=== PATIENT | female | born 1955 | race Caucasian/White ===

== ENCOUNTER → 2017-12-30 | Outpatient (CLI) | payer MEDICARE | LOC: PREOP 05:35 | PROVIDERS: ATTEND Internal Medicine Critical Care Medicine | DX: Z01.818 Encounter for other preprocedural examination (principal); R91.8 Other nonspecific abnormal finding of lung field; R63.4 Abnormal weight loss; F17.200 Nicotine dependence, unspecified, uncomplicated ==

== ENCOUNTER → 2018-01-04 | Outpatient (CLI) | payer MEDICARE, MEDICAID ==
[~2018-01-04] MED LIST: AMIT50TA3 PO; CARB400T8 PO; FLUT9.9S NS
--- NOTE | 2018-01-04 16:22 | Diagnostic Imaging Report ---
INDICATION: Left lung mass and weight loss. TECHNIQUE: Patient's blood serum glucose level was 91 mg/dL at time of injection. Patient was administered 13.6 mCi F-18 FDG intravenously in the left antecubital location and PET imaging was performed from the top of the skull through the mid thighs. In addition, noncontrast CT was performed for anatomic correlation and attenuation correction. COMPARISON: No prior studies are available for comparison. FINDINGS: Imaging through the brain does show a large area of photopenia on the left, correlating with a large area of encephalomalacia on the CT, likely from prior infarct. No suspicious region of hypermetabolism is identified. Imaging through the neck does show a small focus of hypermetabolism in the right posterior cervical location with SUV max of approximately 8.4. This does correlate with a small approximately 7 mm lymph node. No other hypermetabolic focus in the neck is identified. There is a small focus of hypermetabolism in the left proximal humerus laterally measuring up to 7.9 SUV max. This is in the region of the lateral humeral head. There is a large hypermetabolic mass arising from the left hilum with SUV max of approximately 18.5. This correlates to a lesion on the CT measuring approximately 5.3 x 5.1 cm. The right hilum is unremarkable. No mediastinal hypermetabolism is seen. No pulmonary parenchymal hypermetabolism is identified. Imaging through the abdomen and pelvis does show normal physiologic activity within the liver and spleen as well as the genitourinary and GI tracts. No suspicious hypermetabolism in the abdomen or pelvis is identified. IMPRESSION: 1. Large hypermetabolic mass in the left hilum, suggestive of bronchogenic carcinoma. 2. Hypermetabolic focus in the right posterior cervical space, correlating with a small lymph node. Small metastatic lymph node cannot be excluded. In addition, there is a small focus of hypermetabolism in the proximal left humerus and a small metastatic lesion cannot be excluded. MRI of the left shoulder would be useful for further evaluation. Dictated by: Dictated on workstation # [id number]
== END ==
LOC: RAD 11:34
PROVIDERS: ATTEND Internal Medicine Critical Care Medicine
DX: R91.8 Other nonspecific abnormal finding of lung field (principal); R63.4 Abnormal weight loss; F17.200 Nicotine dependence, unspecified, uncomplicated

== ENCOUNTER 2018-01-05 06:31 | Day surgery (SDC) | payer MEDICARE, MEDICAID ==
[~2018-01-05] VITALS: Ht 165.1 cm; Wt 54.4 kg
[2018-01-05] MEDS ORDERED: LIDOCAINE 4% INJ (XYLOCAINE) 5ML AMP INJ ONE (06:32)
[2018-01-05] MEDS ORDERED: LIDOCAINE JELLY 2% (XYLOCAINE) 30 ML TUBE TOP ONE (06:32)
[2018-01-05] MEDS ORDERED: LIDOCAINE PF 1% 2 ML AMP INJ ONE (06:32)
--- OUTSIDE RECORDS SUMMARY | 2018-01-05 06:36 | XMS REPORT ---
Author Author DEEPAK Ramirez [facility] Address Unknown Care Team Providers Care Hide Stretcher Hand Name Role Phone DEEPAK Ramirez Unavailable PROBLEMS Unknown Problems ALLERGIES No Known Allergies SOCIAL HISTORY Never Assessed PLAN OF CARE Activity Details Follow Up 3 Weeks Reason:Upper and lower impressions VITAL SIGNS Blood pressure systolic 145 mmHg 2016-12-14 Blood pressure diastolic 93 mmHg 2016-12-14 MEDICATIONS Medication Instructions Dosage Frequency Start Date End Date Duration Status Amitriptyline HCl Active RESULTS No Results PROCEDURES Procedure Date Ordered Result Body Site EXTRAC ERUPTED TOOTH/EXPOSED ROOT Dec 14, 2016 EXTRAC ERUPTED TOOTH/EXPOSED ROOT Dec 14, 2016 EXTRAC ERUPTED TOOTH/EXPOSED ROOT Dec 14, 2016 EXTRAC ERUPTED TOOTH/EXPOSED ROOT Dec 14, 2016 EXTRAC ERUPTED TOOTH/EXPOSED ROOT Dec 14, 2016 EXTRAC ERUPTED TOOTH/EXPOSED ROOT Dec 14, 2016 EXTRAC ERUPTED TOOTH/EXPOSED ROOT Dec 14, 2016 EXTRAC ERUPTED TOOTH/EXPOSED ROOT Dec 14, 2016 IMMUNIZATIONS No Known Immunizations MEDICAL (GENERAL) HISTORY Type Description Date Medical History stroke 1991
--- OUTSIDE RECORDS SUMMARY | 2018-01-05 06:36 | XMS REPORT ---
Author Author DEEPAK Ramirez [facility] Address Unknown Care Team Providers Care Inventory Assistant Name Role Phone DEEPAK Ramirez Unavailable PROBLEMS Unknown Problems ALLERGIES Substance Reaction Event Type Date Status N.K.D.A. Unknown Non Drug Allergy Aug, Unknown SOCIAL HISTORY No smoking Hx information available PLAN OF CARE Activity Details Follow Up prn Reason:upper te VITAL SIGNS Blood pressure systolic 137 mmHg 2016-08-25 Blood pressure diastolic 81 mmHg 2016-08-25 MEDICATIONS Medication Instructions Dosage Frequency Start Date End Date Duration Status Amitriptyline HCl Active RESULTS No Results PROCEDURES Procedure Date Ordered Related Diagnosis Body Site COMP ORAL EVALUATION - NEW/EST PT Aug 25, 2016 PANORAMIC FILM SEE ALSO CODE [id number] Aug 25, 2016 IMMUNIZATIONS No Known Immunizations
--- OUTSIDE RECORDS SUMMARY | 2018-01-05 06:36 | XMS REPORT ---
Author Author DEEPAK Ramirez Organization [facility] Address Unknown Care Team Providers Care Networking Technology Instructor Name Role Phone DEEPAK Ramirez Unavailable PROBLEMS Unknown Problems ALLERGIES Substance Reaction Event Type Date Status N.K.D.A. Unknown Non Drug Allergy Sep, Unknown SOCIAL HISTORY No smoking Hx information available PLAN OF CARE Activity Details Follow Up 1 Week Reason:upper left te VITAL SIGNS Blood pressure systolic 118 mmHg 2016-10-05 Blood pressure diastolic 99 mmHg 2016-10-05 MEDICATIONS Medication Instructions Dosage Frequency Start Date End Date Duration Status Amitriptyline HCl Active RESULTS No Results PROCEDURES Procedure Date Ordered Related Diagnosis Body Site INTRAORL-PERIAPICAL 1 FILM [id number] Oct 05, 2016 INTRAORL-PERIAPICAL EA ADD FILM Oct 05, 2016 EXTRAC ERUPTED TOOTH/EXPOSED ROOT Oct 05, 2016 EXTRAC ERUPTED TOOTH/EXPOSED ROOT Oct 05, 2016 EXTRAC ERUPTED TOOTH/EXPOSED ROOT Oct 05, 2016 EXTRAC ERUPTED TOOTH/EXPOSED ROOT Oct 05, 2016 EXTRAC ERUPTED TOOTH/EXPOSED ROOT Oct 05, 2016 IMMUNIZATIONS No Known Immunizations
--- OUTSIDE RECORDS SUMMARY | 2018-01-05 06:36 | XMS REPORT ---
Author Author DEPEAK Ramirez Organization [facility] Address Unknown Care Team Providers Care Sales And Marketing Specialist Name Role Phone DEEPAK Ramirez Unavailable PROBLEMS Unknown Problems ALLERGIES Substance Reaction Event Type Date Status N.K.D.A. Unknown Non Drug Allergy Sep, Unknown SOCIAL HISTORY No smoking Hx information available PLAN OF CARE Activity Details Follow Up prn Reason:upper denture VITAL SIGNS Blood pressure systolic 112 mmHg 2016-10-14 Blood pressure diastolic 72 mmHg 2016-10-14 MEDICATIONS Medication Instructions Dosage Frequency Start Date End Date Duration Status Amitriptyline HCl Active RESULTS No Results PROCEDURES Procedure Date Ordered Related Diagnosis Body Site EXTRAC ERUPTED TOOTH/EXPOSED ROOT Oct 14, 2016 EXTRAC ERUPTED TOOTH/EXPOSED ROOT Oct 14, 2016 EXTRAC ERUPTED TOOTH/EXPOSED ROOT Oct 14, 2016 EXTRAC ERUPTED TOOTH/EXPOSED ROOT Oct 14, 2016 EXTRAC ERUPTED TOOTH/EXPOSED ROOT Oct 14, 2016 IMMUNIZATIONS No Known Immunizations
--- OUTSIDE RECORDS SUMMARY | 2018-01-05 06:36 | XMS REPORT ---
Author Author DEEPAK Ramirez [facility] Address Unknown Care Team Providers Care Seam Rubbing Machine Operator Name Role Phone DEEPAK Ramirez Unavailable PROBLEMS Unknown Problems ALLERGIES No Known Allergies SOCIAL HISTORY Never Assessed PLAN OF CARE VITAL SIGNS MEDICATIONS Medication Instructions Dosage Frequency Start Date End Date Duration Status Amitriptyline HCl Active RESULTS No Results PROCEDURES Procedure Date Ordered Result Body Site EXTRAC ERUPTED TOOTH/EXPOSED ROOT Nov 23, 2016 EXTRAC ERUPTED TOOTH/EXPOSED ROOT Nov 23, 2016 IMMUNIZATIONS No Known Immunizations MEDICAL (GENERAL) HISTORY Type Description Date Medical History stroke 1991
[2018-01-05] MEDS ORDERED: NS IV 500 ML 500 ML IV PRN (06:56)
[2018-01-05] MEDS ORDERED: CARB400T8 PO (07:07)
[2018-01-05] MEDS ORDERED: AMIT50TA3 PO (07:08)
[2018-01-05] MEDS ORDERED: FLUT9.9S NS (07:08)
[2018-01-05] MEDS ORDERED: NS IV 500 ML 500 ML ONE (07:09)
[2018-01-05 07:16] VITALS: BP 130/63
--- NOTE | 2018-01-05 07:24 | Progress Note-Pre Operative ---
Pre-Operative Progress Note H&P Reviewed The H&P was reviewed, patient examined and no changes noted. Time Seen by Provider: 07:23 Date H&P Reviewed: Jan 05, 2018 Time H&P Reviewed: 07:23 Pre-Operative Diagnosis: lung mass FRANCISCO JAVIER WILLETT DO Jan 05, 2018 07:24
--- NOTE | 2018-01-05 07:24 | Pre-Op Note & Conscious Sedat ---
Pre-Operative Progress Note H&P Reviewed The H&P was reviewed, patient examined and no changes noted. Date H&P Reviewed: Jan 05, 2018 Time H&P Reviewed: 07:24 Pre-Op Diagnosis: left pleural effusion Conscious Sedation Pre-Proced Time Reviewed: 07:23 ASA Class: 3 Airway Mallampati Classification: (eyak appropriate class) I. II. III, IV Lungs Heart ASA score ASA 1: a normal healthy patient ASA 2: a patient with a mild systemic disease (mid diabetes, controlled hypertension, obesity ASA 3: a patient with a severe systemic disease that limits activity (angina , COPD, prior Myocardial infarction) ASA 4: a patient with an incapacitating disease that is a constant threat to life (CHF, renal failure) ASA 5: a moribund patient not expected to survive 24 hrs. (ruptured aneurysm) ASA 6: a declared brain patient whose organs are being harvested. For emergent operations, add the letter E after the classification Grade 3 Sedation Plan: Analgesia, Amnesia, Plan communicated to team members, Discussed options with patient/fam, Discussed risks with patient/fam Note The patient is an appropriate candidate to undergo the planned procedure, sedation, and anesthesia. The patient immediately re-assessed prior to indication. FRANCISCO JAVIER WILLETT DO Jan 05, 2018 07:24
[2018-01-05] MEDS ORDERED: fentaNYL INJECTION 100 MCG/2 ML AMP ONE ×2 (07:28→07:53)
[2018-01-05] MEDS ORDERED: MIDAZOLAM 2 MG/2 ML (VERSED) VIAL ONE ×4 (07:28)
[2018-01-05] MEDS: fentaNYL INJECTION 100 MCG/2 ML AMP IVP PRN ×7 (07:39→08:07)
[2018-01-05] MEDS: MIDAZOLAM 2 MG/2 ML (VERSED) VIAL IVP PRN ×7 (07:40→08:08)
--- NOTE | 2018-01-05 08:40 | Diagnostic Imaging Report ---
INDICATION: Post bronchoscopy. COMPARISON: None. FINDINGS: Portable supine view of the chest is obtained. No pneumothorax is seen. Heart size and pulmonary vasculature appear unremarkable. There is a 7.8 cm masslike opacity over the left hilum concerning for adenopathy or central mass. There may be some minimal to mild pneumonitis seen within the left upper lobe. The right lung is clear. IMPRESSION: No evidence of pneumothorax post bronchoscopy. There is a mass-like opacity over the left hilum concerning for central mass or adenopathy. Mild pneumonitis left upper lobe. Dictated by: Dictated on workstation # [id number]
[2018-01-05 08:45] VITALS: BP 117/55
[2018-01-05 09:15] VITALS: BP 123/68
[2018-01-05 09:55] VITALS: BP 123/68
--- NOTE | 2018-01-05 10:39 | Diagnostic Imaging Report ---
INDICATION: Fluoroscopy during bronchoscopy. FINDINGS: Fluoroscopy was performed during bronchoscopy by Dr. Camacho. A total of 78 seconds of fluoroscopic time was utilized. Three images were obtained. IMPRESSION: Fluoroscopy during bronchoscopy. Dictated by: Dictated on workstation # [id number]
== END 2018-01-05 09:55 | disposition home or self-care (01) ==
LOC: ENDO 06:31
PROVIDERS: ATTEND Internal Medicine Critical Care Medicine
DX: R91.8 Other nonspecific abnormal finding of lung field (principal); F17.200 Nicotine dependence, unspecified, uncomplicated; R63.4 Abnormal weight loss; R22.0 Localized swelling, mass and lump, head
CPT/HCPCS: 71045; 87070; 87101; 87116; 87205

== ENCOUNTER 2018-01-13 11:12 | Day surgery (SDC) | payer MEDICARE, MEDICAID ==
[~2018-01-13] VITALS: Ht 165.1 cm; Wt 54.4 kg
[~2018-01-13 11:12] MED LIST changes: -ACHD5005 PO; -GADOBUTROL 7.5 MMOL/7.5 ML (GADAVIST) VIAL IV ONE
[2018-01-13] MEDS ORDERED: LACTATED RINGERS 1,000 ML IV PRN (11:24)
[2018-01-13] MEDS ORDERED: LIDOCAINE 1% INJ 20 ML (XYLOCAINE) VIAL ONE (11:51)
[2018-01-13] MEDS ORDERED: HEParin (CENTRAL IV FLUSH) 500 UNIT/5 ML SYR ONE (11:51)
[2018-01-13] MEDS ORDERED: BUPIVACAINE 0.5% 30 ML (SENSORCAINE) VIAL ONE (11:51)
[2018-01-13] MEDS ORDERED: 0.9% SODIUM CHLORIDE PF INJ 20 ML VIAL ONE (11:52)
[2018-01-13 12:00] VITALS: BP 133/70
[2018-01-13] MEDS ORDERED: LEVETIRACETAM INJECTION 1,000 MG in NS (IVPB) 100 ML IV ONE (12:00)
[2018-01-13] MEDS ORDERED: ceFAZolin 1 GM/NS 100 ML IVPB IV ONE ×2 (12:00)
[2018-01-13] MEDS ORDERED: PROPOFOL INJECTION 50 ML IV ONE (12:17)
[2018-01-13] MEDS ORDERED: MIDAZOLAM 2 MG/2 ML (VERSED) VIAL ONE (12:18)
[2018-01-13 12:33] LABS: BASOPHILS % (AUTO) 1 % (0-10); EOSINOPHILS # (AUTO) 0.1 10^3/uL (0.0-0.3); EOSINOPHILS % (AUTO) 2 % (0-10); HEMATOCRIT 36 % (35-52); HEMOGLOBIN 12.2 G/DL (11.5-16.0); LYMPHOCYTES # (AUTO) 1.6 X 10^3 (1.0-4.0); LYMPHOCYTES % (AUTO) 38 % (12-44); MEAN CORPUSCULAR HEMOGLOBIN 27 PG (25-34); MEAN CORPUSCULAR HGB CONC 34 G/DL (32-36); MEAN CORPUSCULAR VOLUME 81 FL (80-99); MEAN PLATELET VOLUME 10.8 FL (7.4-10.4); MONOCYTES # (AUTO) 0.4 X 10^3 (0.0-1.0); MONOCYTES % (AUTO) 10 % (0-12); NEUTROPHILS # (AUTO) 2.1 X 10^3 (1.8-7.8); NEUTROPHILS % (AUTO) 49 % (42-75); PLATELET COUNT 205 10^3/uL (130-400); RED BLOOD COUNT 4.45 10^6/uL (4.35-5.85); RED CELL DISTRIBUTION WIDTH 15.4 % (10.0-14.5); WHITE BLOOD COUNT 4.3 10^3/uL (4.3-11.0)
--- NOTE | 2018-01-13 13:29 | Progress Note-Post Operative ---
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
--- NOTE | 2018-01-13 13:32 | Discharge Inst-Simple/Standard ---
Discharge Inst-Standard Discharge Medications New, Converted or Re-Newed RX: RX on Chart Patient Instructions/Follow Up Plan of Care/Instructions/FU: 2 weeks Seema Activity as Tolerated: No Discharge Diet: Regular Diet Other Inst to Patient Follow up Appt: Make appointment for 2 week. Instructions: No lifting greater than 10 pounds. No strenuous activity. May shower in 24 hours, no tub bath or soaking. Use incentive spirometer at home as directed. No Smoking Skin/Wound Care: May remove bandages 48 hours. You have special glue it will fall off on its own. Symptoms to Report: Appetite Changes, Extremity Discoloration, Numbness/Tingling, Swelling Increased , Bleeding Excessive, Eyesight Changes, Pain Increased, Urine Color Change, Constipation(Persistent), Fever over 101 degree F, Pain/Pressure in chest, Urinating Difficulty, Cough Up/Vomit Blood, Heart Beat Irreg/Pounding, Pain/ Pressure in jaw, Vaginal Bleeding Increase, Cramps in feet or legs, Lightheadedness, Pain/Pressure in shoulder, Diarrhea(Persistent), Memory Changes Suddenly, Questions/Concerns, Weight gain consecutive days, Dizziness/ Fainting, Nausea/Vomiting, Shortness of Breath, Weight gain over 2 pounds If questions or concerns contact your physician Or seek help at emergency department. RONY MARIA DO Jan 13, 2018 13:32
[2018-01-13] MEDS ORDERED: ONDANSETRON 4 MG/2 ML (SDV) Z0FRAN IVP PRN (13:45)
[2018-01-13] MEDS ORDERED: morphine INJ 10 MG/ML 1ML (SYR OR VIAL) IVP PRN (13:45)
[2018-01-13] MEDS ORDERED: ACHD5005 PO ×2 (13:52)
--- NOTE | 2018-01-13 13:52 | Diagnostic Imaging Report ---
INDICATION: PowerPort insertion. TECHNIQUE/FINDINGS: Fluoroscopy was provided in the OR during a PowerPort insertion by Dr. Stephenson. 46 seconds of fluoroscopy time was utilized. A single image over the chest demonstrates a right chest wall port. IMPRESSION: Fluoroscopy for chest wall port placement. Dictated by: Dictated on workstation # [id number]
--- NOTE | 2018-01-13 14:07 | Diagnostic Imaging Report ---
INDICATION: Post port placement. COMPARISON: 01/05/2018. FINDINGS: Upright portable view of the chest is obtained. There is now a right Port-A-Cath present, the tip of which appears to be in the proximal superior vena cava. There is no evidence of pneumothorax. Heart size is normal. There is no central venous congestion. Mass-like opacity obscuring the left hilum is unchanged. The lungs are otherwise clear. IMPRESSION: 1. New right Port-A-Cath tip appears to be in the proximal superior vena cava. No evidence of pneumothorax. 2. Mass-like process over the left hilum is similar to the recent prior study. Dictated by: Dictated on workstation # [id number]
[2018-01-13 14:08] VITALS: BP 145/82
[2018-01-13 14:40] VITALS: BP 145/81
[2018-01-13 15:30] VITALS: BP 145/81
--- NOTE | 2018-01-13 19:12 | OPERATIVE REPORT ---
DATE OF SERVICE: 01/13/2018 PREOPERATIVE DIAGNOSIS: Small cell lung cancer, left. POSTOPERATIVE DIAGNOSIS: Small cell lung cancer, left. PROCEDURE: Right internal jugular, ultrasound-guided port placement. SURGEON: Rony Stephenson DO. ANESTHESIA: MAC. ESTIMATED BLOOD LOSS: Minimal. COMPLICATIONS: None. INDICATIONS: The patient is a 62-year-old female with recent diagnosis of small cell lung cancer. She was explained risks and benefits of procedure, and wished to proceed with procedure. Consent was signed in the chart. DESCRIPTION OF PROCEDURE: The patient was taken to the operating suite, she was prepped and draped in sterile fashion. A surgical pause was performed. A local anesthetic was infiltrated into the right internal jugular vein area which was located by ultrasound. The right internal jugular vein was then accessed with micro access needle. Dark nonpulsatile blood was withdrawn. The micro access wire was inserted through the needle and the needle was removed. Fluoroscopy assured proper placement. The stab incision was made at the insertion point. The dilator sheath was advanced over the wire. The wire was removed. The normal guidewire was inserted and fluoroscopy assured proper placement. The sheath was removed as well. The wire was then secured. A pocket was created over the right chest after local anesthetic was infiltrated into the area. A dilator sheath was advanced over the guidewire under fluoroscopy and the wire and dilator were removed. The Groshong catheter was inserted through the sheath and the sheath was then removed. The catheter was then tunneled from the insertion site to the pocket created on the right chest. Catheter was cut to length, attached to the port in usual fashion and placed within the pocket. The port was then accessed without difficulty and galina blood and flushed without difficulty first with saline and then with heparin. The subcutaneous tissues were then reapproximated using 3-0 Vicryl. The skin was then closed with Skin Affix after it was washed and dried, but the neck and the chest incision and sterile bandage applied. The patient tolerated procedure well without any complications. She was taken to the recovery room in stable condition. Chest x-ray was pending. Job ID: [id number] DocumentID: [id number] Dictated Date: 01/13/2018 13:36:58 Paste Mixer Date: 01/13/2018 17:06:59 Dictated By: RONY STEPHENSON DO
== END 2018-01-13 15:30 | disposition home or self-care (01) ==
LOC: SDC 11:12
PROVIDERS: ATTEND Surgery
DX: C34.92 Malignant neoplasm of unspecified part of left bronchus or lung (principal); F17.210 Nicotine dependence, cigarettes, uncomplicated; I69.351 Hemiplegia and hemiparesis following cerebral infarction affecting right dominant side; Z79.899 Other long term (current) drug therapy
CPT/HCPCS: 36415; 71045; 85025; 87081

== ENCOUNTER → 2018-01-13 | Outpatient (CLI) | payer MEDICARE, MEDICAID ==
[~2018-01-13] MED LIST changes: +ACHD5005 PO; +GADOBUTROL 7.5 MMOL/7.5 ML (GADAVIST) VIAL IV ONE
[2018-01-13 16:25] LABS: BUN/CREATININE RATIO 10; GFR ESTIMATED > 60
--- NOTE | 2018-01-13 17:29 | Diagnostic Imaging Report ---
PROCEDURE: MR imaging of the brain with and without contrast. TECHNIQUE: Multiplanar, multisequence MR imaging of the brain was performed with and without contrast. INDICATION: History of stroke and brain tumor resection. Syncope. Weakness. COMPARISON: Outside CT head without contrast 12/25/2017. FINDINGS: Examination limited by motion artifact. Left parietal craniotomy and resection of most of the left temporal lobe and left parietal lobe. Mild gliosis about this region in the posterior left frontal and parietal lobes. Additional mild scattered T2 hyperintensities in the supratentorial white matter are nonspecific. Small chronic infarct in the left cerebellar hemisphere. No other abnormal intracranial signal, enhancement, restricted water diffusion, or hemosiderin deposition. Normal morphology including the major midline structures, posterior fossa, and cerebellopontine angles. No hydrocephalus. Normal intracranial flow voids. The paranasal sinuses and mastoids are clear. Left parietal craniotomy. No suspicious bone marrow signal or enhancement. IMPRESSION: 1. Left parietal craniotomy with underlying resection of most of the left temporal and left parietal lobes. Expected adjacent gliosis. 2. Mild nonspecific T2 hyperintensities in the supratentorial white matter, presumed leukoaraiosis. 3. No acute intracranial MRI findings. Findings discussed with Dr. Richter at 5:22 p.m. on 01/13/2018. Dictated by: Dictated on workstation # [id number]
== END ==
LOC: RAD 15:43
PROVIDERS: ATTEND Internal Medicine Critical Care Medicine
DX: R55 Syncope and collapse (principal); R53.1 Weakness; R91.8 Other nonspecific abnormal finding of lung field; R56.9 Unspecified convulsions; Z86.73 Personal history of transient ischemic attack (TIA), and cerebral infarction without residual deficits; Z98.890 Other specified postprocedural states
CPT/HCPCS: 36415; 70553; 82565; 84520

== ENCOUNTER → 2018-01-18 | Outpatient (CLI) | payer MEDICARE, MEDICAID ==
[~2018-01-18] MED LIST changes: +ACHD5005 PO; +CATHETER FLUSH 10 ML SYR IV PRN; +GADOBUTROL 7.5 MMOL/7.5 ML (GADAVIST) VIAL IV ONE; +IOHEXOL 350 MG/ML 100 ML (OMNIPAQUE 350) VIAL IV ONE; +NS 100 ML (IVPB) BAG IV ONE
--- NOTE | 2018-01-18 17:15 | Diagnostic Imaging Report ---
PROCEDURE: CT neck soft tissue with contrast. TECHNIQUE: Multiple contiguous axial images were obtained through the neck after the administration of contrast. INDICATION: Small cell lung cancer. Abnormal FDG PET/CT. COMPARISON: Nuclear medicine FDG PET/CT 01/04/2018. FINDINGS: There is a 0.7 x 0.8 x 1.5 cm necrotic appearing right level II lymph node (axial series image 42). This corresponds to the abnormal FDG uptake on the comparison examination. There is no other cervical lymphadenopathy or suspicious appearing lymph nodes. Nonspecific hypoenhancing nodule in the left thyroid lobe measuring up to 0.7 cm. Partially visualized mass in the left hilum. Coarse atherosclerotic calcifications including the carotid bifurcations. The major salivary glands are unremarkable. The pharyngeal and laryngeal soft tissues are symmetric bilaterally with no focal mass or enhancement. Normal epiglottis and tongue base. Moderate to advanced spondylotic changes are greatest at C5-C7. No high-grade spinal canal narrowing is evident on this nondedicated exam. IMPRESSION: Necrotic appearing right level II lymph node measuring up to 1.5 cm corresponds to the finding on the prior FDG PET/CT. There is no other lymphadenopathy, mass or fluid collection in the neck. Dictated by: Dictated on workstation # [id number]
--- NOTE | 2018-01-18 18:11 | Diagnostic Imaging Report ---
PROCEDURE: MRI upper extremity any joint with and without contrast left. INDICATION: Metastatic neoplasm with abnormal appearance of the left humerus on recent PET scan. Multiplanar pre and postcontrast MR imaging of the left shoulder is performed. FINDINGS: There is mild increased T2 signal within the distal supraspinatus tendon suggesting probable partial tear with what appears to be subchondral cyst in the adjacent humeral head. There is, however, an additional T2 hyperintense focus measuring approximately 1.2 cm in diameter in the posterior aspect of the left humeral head which demonstrates contrast enhancement and would be compatible with metastatic lesion. There is no significant joint effusion. There is mild acromioclavicular degenerative change. No other significant change is noted. IMPRESSION: 1. Findings are compatible with an approximately 1.2 cm osseous metastasis involving the posterior margin of the left humeral head. 2. Otherwise, there is probable partial tear of the distal supraspinatus tendon with underlying degenerative change in the adjacent humeral head. Dictated by: Dictated on workstation # [id number]
== END ==
LOC: RAD 16:09
PROVIDERS: ATTEND Internal Medicine Hematology & Oncology
DX: C34.90 Malignant neoplasm of unspecified part of unspecified bronchus or lung (principal); C79.51 Secondary malignant neoplasm of bone
CPT/HCPCS: 70491; 73223

== ENCOUNTER 2018-04-14 10:56 | Outpatient (RCR) | payer MEDICARE, MEDICAID ==
[2018-01-18 12:35] LABS: BASOPHILS % (AUTO) 1 % (0-10); EOSINOPHILS # (AUTO) 0.1 10^3/uL (0.0-0.3); EOSINOPHILS % (AUTO) 3 % (0-10); HEMATOCRIT 38 % (35-52); HEMOGLOBIN 12.7 G/DL (11.5-16.0); LYMPHOCYTES # (AUTO) 1.5 X 10^3 (1.0-4.0); LYMPHOCYTES % (AUTO) 34 % (12-44); MEAN CORPUSCULAR HEMOGLOBIN 27 PG (25-34); MEAN CORPUSCULAR HGB CONC 34 G/DL (32-36); MEAN CORPUSCULAR VOLUME 81 FL (80-99); MEAN PLATELET VOLUME 10.8 FL (7.4-10.4); MONOCYTES # (AUTO) 0.5 X 10^3 (0.0-1.0); MONOCYTES % (AUTO) 12 % (0-12); NEUTROPHILS # (AUTO) 2.1 X 10^3 (1.8-7.8); NEUTROPHILS % (AUTO) 50 % (42-75); PLATELET COUNT 204 10^3/uL (130-400); RED BLOOD COUNT 4.67 10^6/uL (4.35-5.85); RED CELL DISTRIBUTION WIDTH 15.4 % (10.0-14.5); WHITE BLOOD COUNT 4.3 10^3/uL (4.3-11.0)
[2018-01-18 12:50] LABS: ALANINE AMINOTRANSFERASE 15 U/L (0-55); ALKALINE PHOSPHATASE 95 U/L (40-136); BILIRUBIN,TOTAL 0.2 MG/DL (0.1-1.0); BUN/CREATININE RATIO 13; CALCIUM 9.6 MG/DL (8.5-10.1); CARBON DIOXIDE 25 MMOL/L (21-32); CHLORIDE 108 MMOL/L (98-107); CREATININE SERUM 0.64 MG/DL (0.60-1.30); GFR ESTIMATED > 60; GLUCOSE 93 MG/DL (70-105); POTASSIUM 3.9 MMOL/L (3.6-5.0); SODIUM 141 MMOL/L (135-145); TOTAL PROTEIN 7.2 GM/DL (6.4-8.2)
[2018-02-21 09:36] LABS: BASOPHILS % (AUTO) 1 % (0-10); EOSINOPHILS # (AUTO) 0.1 10^3/uL (0.0-0.3); EOSINOPHILS % (AUTO) 2 % (0-10); HEMATOCRIT 34 % (35-52); HEMOGLOBIN 11.8 G/DL (11.5-16.0); LYMPHOCYTES # (AUTO) 1.5 X 10^3 (1.0-4.0); LYMPHOCYTES % (AUTO) 36 % (12-44); MEAN CORPUSCULAR HEMOGLOBIN 28 PG (25-34); MEAN CORPUSCULAR HGB CONC 34 G/DL (32-36); MEAN CORPUSCULAR VOLUME 83 FL (80-99); MEAN PLATELET VOLUME 9.8 FL (7.4-10.4); MONOCYTES # (AUTO) 0.5 X 10^3 (0.0-1.0); MONOCYTES % (AUTO) 13 % (0-12); NEUTROPHILS % (AUTO) 48 % (42-75); PLATELET COUNT 231 10^3/uL (130-400); RED BLOOD COUNT 4.17 10^6/uL (4.35-5.85); RED CELL DISTRIBUTION WIDTH 15.4 % (10.0-14.5); WHITE BLOOD COUNT 4.1 10^3/uL (4.3-11.0)
[2018-02-21 09:56] LABS: ALANINE AMINOTRANSFERASE 13 U/L (0-55); ALBUMIN 3.9 GM/DL (3.2-4.5); ALKALINE PHOSPHATASE 88 U/L (40-136); BILIRUBIN,TOTAL 0.4 MG/DL (0.1-1.0); BUN/CREATININE RATIO 8; CALCIUM 9.3 MG/DL (8.5-10.1); CARBON DIOXIDE 26 MMOL/L (21-32); CHLORIDE 109 MMOL/L (98-107); CREATININE SERUM 0.63 MG/DL (0.60-1.30); GFR ESTIMATED > 60; GLUCOSE 83 MG/DL (70-105); MAGNESIUM 2.1 MG/DL (1.8-2.4); POTASSIUM 3.7 MMOL/L (3.6-5.0); SODIUM 141 MMOL/L (135-145)
[~2018-04-14] VITALS: Ht 168.3 cm; Wt 52.2 kg
[~2018-04-14 10:56] MED LIST changes: +CARBOPLATIN 425 MG in D5W 50 ML IV(CANCER CTR) 50 ML IV SCH; -CATHETER FLUSH 10 ML SYR IV PRN; +ETOPOSIDE 150 MG in NORMAL SALINE (CANCER CENTER) 500 ML IV SCH; +FOSAPREPITANT DIMEGLUMINE 150 MG in NS (IVPB) CANCER CENTER ONLY 150 ML IV SCH; -GADOBUTROL 7.5 MMOL/7.5 ML (GADAVIST) VIAL IV ONE; -IOHEXOL 350 MG/ML 100 ML (OMNIPAQUE 350) VIAL IV ONE; -NS 100 ML (IVPB) BAG IV ONE; +NS IV 1000 ML (CANCER CTR) IV SCH; +ONDANSETRON MDV (CANCER CENTER 8 MG, DEXAMETHASONE PF INJ (CANCER C 10 MG in NS (IVPB) ... IV SCH; +PALONOSETRON 0.25 MG, DEXAMETHASONE 10 MG/NS 50 ML IVPB IV PRN
== END 2018-04-18 | disposition home or self-care (01) ==
LOC: ONC 10:56
PROVIDERS: ATTEND Internal Medicine Hematology & Oncology
DX: Z51.11 Encounter for antineoplastic chemotherapy (principal); C34.12 Malignant neoplasm of upper lobe, left bronchus or lung; C79.51 Secondary malignant neoplasm of bone; C77.0 Secondary and unspecified malignant neoplasm of lymph nodes of head, face and neck; R55 Syncope and collapse; R63.4 Abnormal weight loss; F17.210 Nicotine dependence, cigarettes, uncomplicated; Z86.73 Personal history of transient ischemic attack (TIA), and cerebral infarction without residual deficits; Z85.89 Personal history of malignant neoplasm of other organs and systems; Z79.899 Other long term (current) drug therapy
CPT/HCPCS: 36415; 36591; 80053; 83615; 83735; 85025; 96367; 96375; 96413; 96417; 99213; 99214

== ENCOUNTER → 2018-04-21 | Outpatient (CLI) | payer MEDICARE, MEDICAID ==
[~2018-04-21] MED LIST changes: -CARBOPLATIN 425 MG in D5W 50 ML IV(CANCER CTR) 50 ML IV SCH; -ETOPOSIDE 150 MG in NORMAL SALINE (CANCER CENTER) 500 ML IV SCH; -FOSAPREPITANT DIMEGLUMINE 150 MG in NS (IVPB) CANCER CENTER ONLY 150 ML IV SCH; +IOHEXOL 350 MG/ML 100 ML (OMNIPAQUE 350) VIAL IV ONE; +NS 250 ML (IVPB) BAG IV ONE; -NS IV 1000 ML (CANCER CTR) IV SCH; -ONDANSETRON MDV (CANCER CENTER 8 MG, DEXAMETHASONE PF INJ (CANCER C 10 MG in NS (IVPB) ... IV SCH; -PALONOSETRON 0.25 MG, DEXAMETHASONE 10 MG/NS 50 ML IVPB IV PRN
[2018-04-21] MEDS: CATHETER FLUSH 10 ML SYR IV PRN ×2 (12:27→12:31)
--- NOTE | 2018-04-21 13:17 | Diagnostic Imaging Report ---
PROCEDURE: CT chest and abdomen with contrast. TECHNIQUE: Multiple contiguous axial images were obtained through the chest and abdomen after the administration of intravenous contrast. INDICATION: Small cell lung cancer, for restaging. COMPARISON: Exam compared to 03/17/2018. FINDINGS: There has been significant mixed interval changes when compared to the previous study. A mary-fissural left upper lobe cavitary mass abutting the major fissure at its posterior aspect has significantly decreased in size measuring 1.6 x 1.1 cm today, previously measuring 4.3 x 3.8 cm. There has been a reduction in infiltrate and additional parenchymal nodularity in the remaining left upper lobe more anterosuperiorly. There, however, has been substantial progressive abnormal confluent mediastinal soft tissue involving the AP window lateral to the aortic arch circumscribing the narrowed left main pulmonary artery as well as abutting at least the ventral aspect of the left mainstem bronchus. This confluent lymphadenopathy measures 5.7 x 3.4 cm lateral to the left main pulmonary artery and measured 4.6 x 4.1 cm lateral to the undivided pulmonary segment and ventral to the left mainstem bronchus. The right hilum and right mediastinal compartments, the paratracheal and subcarinal mediastinum are unremarkable. The right lung is negative. No effusion or pneumothorax. There is no adrenal mass, and the liver appears unremarkable. Gallbladder is surgically absent. There is a right renal cortical cyst and atherosclerotic aorta with no abdominal mesenteric or retroperitoneal lymphadenopathy. No suspicious bony lesion. IMPRESSION: 1. Mixed changes with the cavitary upper lobe mary-fissural mass markedly decreased in size and improvements in additional areas of parenchymal nodularity in the left upper lobe infiltrate. However, substantial progression of mediastinal neoplastic infiltration. 2. No evidence for abdominal metastasis. Dictated by: Dictated on workstation # [id number]
--- NOTE | 2018-04-21 16:51 | Diagnostic Imaging Report ---
Indication: Lung cancer Whole-body bone scan performed with IV injection of 24.9 mCi technetium 99m MDP. There are no previous studies for comparison. There is physiologic uptake of the tracer throughout the skeleton. There is no focal areas of increased osteoblastic activity to suggest metastatic disease. Both kidneys excrete the tracer. There is mild scoliotic change. Impression: No scintigraphic evidence of osseous metastatic disease. Dictated by: Dictated on workstation # [id number]
== END ==
LOC: CARD 12:16
PROVIDERS: ATTEND Internal Medicine Hematology & Oncology
DX: Z01.89 Encounter for other specified special examinations (principal); C34.12 Malignant neoplasm of upper lobe, left bronchus or lung
CPT/HCPCS: 71260; 74160; 78306

== ENCOUNTER 2018-04-28 11:01 | Outpatient (RCR) | payer MEDICARE, MEDICAID ==
[~2018-04-28 11:01] MED LIST changes: +CARBOPLATIN 425 MG in D5W 50 ML IV(CANCER CTR) 50 ML IV SCH; +ETOPOSIDE 150 MG in NORMAL SALINE (CANCER CENTER) 500 ML IV SCH; +FOSAPREPITANT DIMEGLUMINE 150 MG in NS (IVPB) CANCER CENTER ONLY 150 ML IV SCH; -IOHEXOL 350 MG/ML 100 ML (OMNIPAQUE 350) VIAL IV ONE; -NS 250 ML (IVPB) BAG IV ONE; +NS IV 1000 ML (CANCER CTR) IV SCH; +ONDANSETRON MDV (CANCER CENTER 8 MG, DEXAMETHASONE INJECTION 10 MG in NS (IVPB) CANCER ... IV SCH; +PALONOSETRON HCL 0.25 MG, DEXAMETHASONE INJECTION 10 MG in NS (IVPB) CANCER CENTER 50 ML IV SCH
[2018-04-28 11:26] LABS: BASOPHILS % (AUTO) 1 % (0-10); EOSINOPHILS # (AUTO) 0.2 10^3/uL (0.0-0.3); EOSINOPHILS % (AUTO) 5 % (0-10); HEMATOCRIT 33 % (35-52); HEMOGLOBIN 11.1 G/DL (11.5-16.0); LYMPHOCYTES # (AUTO) 1.6 X 10^3 (1.0-4.0); LYMPHOCYTES % (AUTO) 32 % (12-44); MEAN CORPUSCULAR HEMOGLOBIN 30 PG (25-34); MEAN CORPUSCULAR HGB CONC 34 G/DL (32-36); MEAN CORPUSCULAR VOLUME 90 FL (80-99); MEAN PLATELET VOLUME 9.5 FL (7.4-10.4); MONOCYTES # (AUTO) 0.5 X 10^3 (0.0-1.0); MONOCYTES % (AUTO) 9 % (0-12); NEUTROPHILS # (AUTO) 2.6 X 10^3 (1.8-7.8); NEUTROPHILS % (AUTO) 54 % (42-75); PLATELET COUNT 322 10^3/uL (130-400); RED CELL DISTRIBUTION WIDTH 15.8 % (10.0-14.5); WHITE BLOOD COUNT 4.9 10^3/uL (4.3-11.0)
[2018-04-28 11:52] LABS: ALANINE AMINOTRANSFERASE 14 U/L (0-55); ALBUMIN 3.7 GM/DL (3.2-4.5); ALKALINE PHOSPHATASE 85 U/L (40-136); BILIRUBIN,TOTAL 0.3 MG/DL (0.1-1.0); BUN/CREATININE RATIO 9; CALCIUM 9.3 MG/DL (8.5-10.1); CARBON DIOXIDE 24 MMOL/L (21-32); CHLORIDE 108 MMOL/L (98-107); CREATININE SERUM 0.69 MG/DL (0.60-1.30); GFR ESTIMATED > 60; GLUCOSE 89 MG/DL (70-105); POTASSIUM 4.1 MMOL/L (3.6-5.0); SODIUM 140 MMOL/L (135-145); TOTAL PROTEIN 7.3 GM/DL (6.4-8.2)
== END 2018-05-17 | disposition home or self-care (01) ==
LOC: ONC 11:01
PROVIDERS: ATTEND Internal Medicine Hematology & Oncology
DX: C34.12 Malignant neoplasm of upper lobe, left bronchus or lung (principal); C79.51 Secondary malignant neoplasm of bone; C77.0 Secondary and unspecified malignant neoplasm of lymph nodes of head, face and neck; R55 Syncope and collapse; R63.4 Abnormal weight loss; F17.210 Nicotine dependence, cigarettes, uncomplicated; Z86.73 Personal history of transient ischemic attack (TIA), and cerebral infarction without residual deficits; Z85.89 Personal history of malignant neoplasm of other organs and systems; Z79.899 Other long term (current) drug therapy
CPT/HCPCS: 36591; 80053; 83615; 85025